=== PATIENT | male | born 1970 | race Caucasian/White ===

== ENCOUNTER 2020-10-23 12:20 | Emergency (ER) | payer OTHER ==
[2020-10-23 16:28] LABS: BASOPHIL 0.5 % (0-2); EOSINOPHIL 1.2 % (0-5); HCT 47.9 % (42.0-52.0); HGB 16.6 g/dl (13.2-18.0); MCH 30.3 pg (25.0-31.0); MCHC 34.7 g/dL (32.0-36.0); MCV 87.4 fL (78.0-100.0); MONOCYTE 10.1 % (0-12); MPV 8.9 fL (6.0-9.5); NEUTROPHIL 67.1 % (41-80); NRBC 0; PLT 209 K/uL (150-400); RBC 5.48 M/uL (4.70-6.00)
[2020-10-23 16:49] LABS: ALBUMIN 4.2 g/dL (3.4-5.0); BILIRUBIN - TOTAL 0.8 mg/dL (0.2-1.0); CREATININE 1.04 mg/dL (0.67-1.17); GLOBULIN (CALCULATION) 3.8 g/dL; POTASSIUM 3.8 mmol/L (3.5-5.1)
[2020-10-23 16:59] LABS: INR 1.04 (0.9-1.2); PROTHROMBIN TIME 12.9 SECONDS (11.4-13.6)
== END 2020-10-23 18:55 | disposition other institution (70) ==
LOC: FER 12:20
PROVIDERS: Emergency Medicine
DX: S43.401A Unspecified sprain of right shoulder joint, initial encounter (principal); S00.01XA Abrasion of scalp, initial encounter; Z20.822 Contact with and (suspected) exposure to COVID-19; V49.50XA Passenger injured in collision with unspecified motor vehicles in traffic accident, initial encounter; Y92.410 Unspecified street and highway as the place of occurrence of the external cause
CPT/HCPCS: 36415; 70450; 72125; 73030; 80053; 85025; 85610; U0002